=== PATIENT | female | born 1985 | race Caucasian/White ===

== ENCOUNTER 2025-04-28 05:48 | Day surgery (SDC) | payer OTHER ==
[2025-04-23 14:27] VITALS: BMI 37.4
[2025-04-28] MEDS ORDERED: AFRIN NASAL MIST 15 ML BOT ONE ×2 (06:18→06:21)
[2025-04-28] MEDS ORDERED: Lidocaine 1% w/Epinephrine 1:200K 30 ML VIAL ONE (06:18)
[2025-04-28] MEDS ORDERED: Sevoflurane 250 ML INH ANEST BOTTLE ONE (06:23)
[2025-04-28] MEDS ORDERED: Rocuronium Bromide 10 MG/ML (10ML VIAL) ONE (06:25)
[2025-04-28] MEDS ORDERED: PROPOFOL 40 ML ONE (06:25)
[2025-04-28] MEDS ORDERED: SUGAMMADEX SODIUM 200 MG/2 ML VIAL ONE (06:25)
[2025-04-28] MEDS ORDERED: Famotidine/PF 20 mg/2ml Vial ONE (06:36)
[2025-04-28] MEDS ORDERED: Glycopyrrolate 0.2 MG/ML 5 ML SYRINGE ONE (06:59)
[2025-04-28] MEDS ORDERED: HYDROcodone/Acetaminophen 5/325 mg Tablet ONE (09:40)
== END 2025-04-28 11:00 | disposition home or self-care (01) ==
LOC: CSHSDC 05:48
PROVIDERS: ATTEND Otolaryngology Otolaryngic Allergy
DX: J32.4 Chronic pansinusitis (principal); J33.9 Nasal polyp, unspecified; Z85.828 Personal history of other malignant neoplasm of skin; Z87.891 Personal history of nicotine dependence; Z90.49 Acquired absence of other specified parts of digestive tract; Z90.710 Acquired absence of both cervix and uterus; Z88.0 Allergy status to penicillin
CPT/HCPCS: 87070; 87077; 87102; 87186; 87205; 87206; 88305; J0169; J1100; J1308; J2250; J2704; J3301